=== PATIENT | male | born 1965 | race Caucasian/White ===

== ENCOUNTER 2019-03-29 09:01 | Emergency (ER) | payer OTHER ==
[~2019-03-29] VITALS: Ht 182.9 cm; Wt 93.7 kg
[2019-03-29 11:04] LABS: BASO % 0.4 % (0.0-1.0); EOS # 0.1 10^3/uL (0.0-0.5); EOS % 1.1 % (0.0-3.0); HEMATOCRIT 48.1 % (42.0-52.0); HEMOGLOBIN 16.1 g/dl (13.5-17.5); LYMPH # 3.2 10^3/uL (1.5-5.0); LYMPH % 32.4 % (24.0-44.0); MEAN CORPUSCULAR HEMOGLOBIN 30.1 pg (27.0-33.0); MEAN CORPUSCULAR HGB CONC 33.5 g/dl (32.0-36.5); MEAN CORPUSCULAR VOLUME 90.1 fl (80.0-96.0); MONO # 0.8 10^3/uL (0.0-0.8); MONO % 8.5 % (0.0-5.0); NEUTROPHILS # 5.6 10^3/uL (1.5-8.5); NEUTROPHILS % 57.3 % (36.0-66.0); PLATELET COUNT, AUTOMATED 266 10^3/uL (150-450); RED BLOOD COUNT 5.34 10^6/uL (4.30-6.10); WHITE BLOOD COUNT 9.8 10^3/uL (4.0-10.0)
[2019-03-29 11:24] LABS: ALBUMIN 3.9 GM/DL (3.2-5.2); ALT/SGPT 39 U/L (12-78); BILIRUBIN,TOTAL 0.3 MG/DL (0.2-1.0); BLOOD UREA NITROGEN 13 MG/DL (7-18); CARBON DIOXIDE LEVEL 24 MEQ/L (21-32); CHLORIDE LEVEL 110 MEQ/L (98-107); CREATININE FOR GFR 0.84 MG/DL (0.70-1.30); GLOMERULAR FILTRATION RATE > 60.0 (>56); GLUCOSE, FASTING 110 MG/DL (70-100); POTASSIUM SERUM 4.4 MEQ/L (3.5-5.1); SODIUM LEVEL 139 MEQ/L (136-145); TOTAL PROTEIN 7.4 GM/DL (6.4-8.2)
[2019-03-29 11:35] VITALS: BP 123/79
[2019-03-29] MEDS ORDERED: LIDOCAINE 5% (LIDODERM) PATCH TD ONE (11:45)
[2019-03-29] MEDS ORDERED: IBUPROFEN 800 MG TAB PO ONE (11:45)
[2019-03-29] MEDS ORDERED: **NOTE PATIENT COMMENT** MISC XX SCH (21:00)
== END 2019-03-29 11:55 | disposition home or self-care (01) ==
LOC: M ED 09:01
DX: M54.5 Low back pain (principal); F17.210 Nicotine dependence, cigarettes, uncomplicated; Z83.3 Family history of diabetes mellitus

== ENCOUNTER 2019-07-05 12:38 | Emergency (ER) | payer OTHER ==
[~2019-07-05] VITALS: Ht 182.9 cm; Wt 95.7 kg
[2019-07-05] MEDS ORDERED: ASPIRIN 81 MG CHEW TABLET PO ONE (13:00)
[2019-07-05] MEDS ORDERED: HEPARIN DRIP 25,000 UNITS in IV 1 EA IV SCH (13:17)
[2019-07-05] MEDS ORDERED: CLOPIDOGREL 300 MG TAB (PLAVIX) PO ONE (13:30)
[2019-07-05] MEDS ORDERED: NITROGLYCERIN 2% OINT 1 GM *U/D* PKT TOP ONE (13:30)
[2019-07-05] MEDS ORDERED: HEPARIN SOD (PORCINE) 5000UNITS/ML VIAL (J1644 PER 1000UNITS) IV ONE (13:30)
[2019-07-05 13:34] LABS: BASO % 0.4 % (0.0-1.0); EOS # 0.1 10^3/uL (0.0-0.5); EOS % 1.3 % (0.0-3.0); HEMATOCRIT 43.1 % (42.0-52.0); LYMPH # 2.6 10^3/uL (1.5-5.0); LYMPH % 23.5 % (24.0-44.0); MEAN CORPUSCULAR HEMOGLOBIN 31.1 pg (27.0-33.0); MEAN CORPUSCULAR HGB CONC 34.8 g/dl (32.0-36.5); MEAN CORPUSCULAR VOLUME 89.2 fl (80.0-96.0); MONO # 0.8 10^3/uL (0.0-0.8); NEUTROPHILS # 7.4 10^3/uL (1.5-8.5); NEUTROPHILS % 67.4 % (36.0-66.0); PLATELET COUNT, AUTOMATED 257 10^3/uL (150-450); RED BLOOD COUNT 4.83 10^6/uL (4.30-6.10)
[2019-07-05 13:47] LABS: INR 0.95; PROTHROMBIN TIME 12.4 SECONDS (11.8-14.0)
[2019-07-05 13:48] LABS: PARTIAL THROMBOPLASTIN TIME 34.6 SECONDS (25.0-38.4)
--- NOTE | 2019-07-05 14:09 | REP ---
REASON: Chest pain. FINDINGS: The technique utilized in obtaining the radiograph has magnified the cardiac silhouette and accentuated the interstitial markings. The superior mediastinal structures are midline. The cardiac silhouette is unremarkable in size, shape, and position. The diaphragmatic surfaces of the lungs are regular, and the costophrenic angles are clear. The pulmonary cantrell are clear. The imaged osseous structures are intact. IMPRESSION: There is no acute cardiopulmonary disease. Electronically Signed by Min Tam DO 07/05/2019 05:08 P
[2019-07-05 14:12] VITALS: BP 141/86
[2019-07-05 14:14] VITALS: BP 141/86
--- NOTE | 2019-07-05 21:10 | ECGEPIP ---
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
== END 2019-07-05 14:21 | disposition short-term general hospital (02) ==
LOC: M ED 12:38
DX: I21.4 Non-ST elevation (NSTEMI) myocardial infarction (principal); F17.210 Nicotine dependence, cigarettes, uncomplicated
CPT/HCPCS: 71045; 80047; 83880; 84484; 85025; 85610; 85730; 93005; 93041; 94760; 96365; 99285; J1644

== ENCOUNTER → 2020-06-20 | Outpatient (REF) | payer OTHER | LOC: M SFHCPLAZ 12:18 | PROVIDERS: ATTEND Family Medicine | DX: Z53.20 Procedure and treatment not carried out because of patient's decision for unspecified reasons (principal) ==

== ENCOUNTER → 2020-10-17 | Outpatient (CLI) | payer OTHER ==
[2020-10-17 13:45] LABS: HEMATOCRIT 47.4 % (42.0-52.0); HEMOGLOBIN 16.1 g/dl (13.5-17.5); MEAN CORPUSCULAR HEMOGLOBIN 31.3 pg (27.0-33.0); PLATELET COUNT, AUTOMATED 277 10^3/uL (150-450); RED BLOOD COUNT 5.15 10^6/uL (4.30-6.10); WHITE BLOOD COUNT 13.1 10^3/uL (4.0-10.0)
== END ==
LOC: M PLALAB 10:47
PROVIDERS: ATTEND Physician Assistant Medical
DX: R19.5 Other fecal abnormalities (principal)

== ENCOUNTER → 2020-11-10 | Outpatient (CLI) | payer OTHER ==
[~2020-11-10] MED LIST: ALIR150P; ATOR80TA59; EZET10TA21; LISI-898; METO1TAB87
== END ==
LOC: M LABSMTC 11:20
PROVIDERS: ATTEND Anesthesiology
DX: Z20.822 Contact with and (suspected) exposure to COVID-19 (principal)

== ENCOUNTER 2020-11-14 07:57 | Day surgery (SDC) | payer OTHER ==
[~2020-11-14] VITALS: Ht 182.9 cm; Wt 88.5 kg
[~2020-11-14 07:57] MED LIST changes: +LIDOCAINE 2% 100MG/5ML SDV (FOR ANES.) As Ordered ONE; +NS 1,000 ML IV ONE; +propofoL 200 MG/20 ML VIAL As Ordered ONE
[2020-11-14] MEDS ORDERED: ASPI81CH48 PO (08:20)
[2020-11-14] MEDS ORDERED: BAYE325T12 PO (08:33)
--- NOTE | 2020-11-14 09:30 | ROOR ---
Patient Name: Sigifredo Munoz Procedure Date: 11/14/2020 8:54 AM Date of : 1965 Age: 55 Room: [facility] Gender: Male Note Status: Finalized Procedure: Colonoscopy Indications: Screening for colorectal malignant neoplasm, Incidental - Positive Cologuard test Providers: Andres Del Angel MD Referring MD: Buddy Siegel MD Requesting Provider: Medicines: Monitored Anesthesia Care Complications: No immediate complications. Procedure: Pre-Anesthesia Assessment: - Prior to the procedure, a History and Physical was performed, and patient medications and allergies were reviewed. The patient is competent. The risks and benefits of the procedure and the sedation options and risks were discussed with the patient. All questions were answered and informed consent was obtained. Patient identification and proposed procedure were verified by the physician, the nurse and the anesthesiologist in the procedure room. Mental Status Examination: alert and oriented. Airway Examination: normal oropharyngeal airway and neck mobility. Respiratory Examination: clear to auscultation. CV Examination: normal. Prophylactic Antibiotics: The patient does not require prophylactic antibiotics. Prior Anticoagulants: The patient has taken no previous anticoagulant or antiplatelet agents. ASA Grade Assessment: II - A patient with mild systemic disease. After reviewing the risks and benefits, the patient was deemed in satisfactory condition to undergo the procedure. The anesthesia plan was to use monitored anesthesia care (MAC). Immediately prior to administration of medications, the patient was re-assessed for adequacy to receive sedatives. The heart rate, respiratory rate, oxygen saturations, blood pressure, adequacy of pulmonary ventilation, and response to care were monitored throughout the procedure. The physical status of the patient was re-assessed after the procedure. The Colonoscope was introduced through the anus and advanced to the terminal ileum, with identification of the appendiceal orifice and IC valve. The colonoscopy was performed without difficulty. The patient tolerated the procedure well. The quality of the bowel preparation was good. The terminal ileum, ileocecal valve, appendiceal orifice, and rectum were photographed. Scope insertion time was 2 minutes. Scope withdrawal time was 10 minutes. The total duration of the procedure was 12 minutes. Findings: The perianal and digital rectal examinations were normal. The terminal ileum appeared normal. A 6 mm polyp was found in the sigmoid colon. The polyp was sessile. The polyp was removed with a jumbo cold forceps. Resection and retrieval were complete. Verification of patient identification for the specimen was done by the physician and nurse using the patient's name, date and medical record number. Estimated blood loss was minimal. Many small-mouthed diverticula were found in the sigmoid colon. There was no evidence of diverticular bleeding. Non-bleeding external and internal hemorrhoids were found during retroflexion. The hemorrhoids were medium-sized. Impression: - The examined portion of the ileum was normal. - One 6 mm polyp in the sigmoid colon, removed with a jumbo cold forceps. Resected and retrieved. - Moderate diverticulosis in the sigmoid colon. There was no evidence of diverticular bleeding. - Non-bleeding external and internal hemorrhoids. Recommendation: - Patient has a contact number available for emergencies. The signs and symptoms of potential delayed complications were discussed with the patient. Return to normal activities tomorrow. Written discharge instructions were provided to the patient. - High fiber diet. - Continue present medications. - Use fiber, for example Citrucel, Fibercon, Konsyl or Metamucil. - Await pathology results. - Repeat colonoscopy in 5 years for surveillance based on pathology results. - Return to GI clinic if persistent symptoms or new symptoms. - Return to primary care physician. Procedure Code(s): --- Professional --- 32895, Colonoscopy, flexible; with biopsy, single or multiple Diagnosis Code(s): --- Professional --- Z12.11, Encounter for screening for malignant neoplasm of colon K64.8, Other hemorrhoids K63.5, Polyp of colon K57.30, Diverticulosis of large intestine without perforation or abscess without bleeding CPT copyright 2019 [employer]. All rights reserved. The codes documented in this report are preliminary and upon spanish professor review may be revised to meet current compliance requirements. Andres Del Angel MD Andres Del Angel MD 11/14/2020 9:29:38 AM Electronically signed by Andres Del Angel MD Number of Addenda: 0 Note Initiated On: 11/14/2020 8:54 AM Estimated Blood Loss: Estimated blood loss was minimal.
[2020-11-14 09:44] VITALS: BP 136/85
== END 2020-11-14 09:56 | disposition home or self-care (01) ==
LOC: M OPP 07:57
PROVIDERS: ATTEND Internal Medicine Gastroenterology
DX: K63.5 Polyp of colon (principal); K57.30 Diverticulosis of large intestine without perforation or abscess without bleeding; K64.8 Other hemorrhoids; R19.5 Other fecal abnormalities; Z79.82 Long term (current) use of aspirin; Z79.899 Other long term (current) drug therapy; F17.210 Nicotine dependence, cigarettes, uncomplicated

== ENCOUNTER → 2021-02-23 | Outpatient (CLI) | payer OTHER ==
[~2021-02-23] MED LIST changes: +ASPI81CH48 PO; +BAYE325T12 PO; -LIDOCAINE 2% 100MG/5ML SDV (FOR ANES.) As Ordered ONE; -LISI-898; +LISI5TAB11; -NS 1,000 ML IV ONE; -propofoL 200 MG/20 ML VIAL As Ordered ONE
== END ==
LOC: M PLAIMG 15:06
PROVIDERS: ATTEND Student in an Organized Health Care Education/Training Program
DX: M25.551 Pain in right hip (principal)

== ENCOUNTER → 2021-04-01 | Outpatient (CLI) | payer OTHER ==
[2021-04-01 14:03] LABS: BASO # 0.1 10^3/uL (0.0-0.2); BASO % 0.5 % (0.0-1.0); EOS # 0.3 10^3/uL (0.0-0.5); EOS % 2.7 % (0.0-3.0); HEMATOCRIT 49.7 % (42.0-52.0); HEMOGLOBIN 16.3 g/dl (13.5-17.5); LYMPH % 30.9 % (24.0-44.0); MEAN CORPUSCULAR HEMOGLOBIN 30.2 pg (27.0-33.0); MEAN CORPUSCULAR HGB CONC 32.8 g/dl (32.0-36.5); MEAN CORPUSCULAR VOLUME 92.2 fl (80.0-96.0); MONO # 0.8 10^3/uL (0.0-0.8); MONO % 8.8 % (2.0-8.0); NEUTROPHILS # 5.4 10^3/uL (1.5-8.5); NEUTROPHILS % 56.7 % (36.0-66.0); PLATELET COUNT, AUTOMATED 263 10^3/uL (150-450); RED BLOOD COUNT 5.39 10^6/uL (4.30-6.10); WHITE BLOOD COUNT 9.5 10^3/uL (4.0-10.0)
[2021-04-01 14:15] LABS: BLOOD UREA NITROGEN 18 MG/DL (7-18); CALCIUM LEVEL 9.1 MG/DL (8.5-10.1); CARBON DIOXIDE LEVEL 25 MEQ/L (21-32); CHLORIDE LEVEL 110 MEQ/L (98-107); CHOLESTEROL LEVEL 66 MG/DL (<200); CHOLESTEROL RISK RATIO 1.692 (<5); CREATININE FOR GFR 0.91 MG/DL (0.70-1.30); GLOMERULAR FILTRATION RATE > 60.0 (>56); GLUCOSE, FASTING 129 MG/DL (70-100); HDL CHOLESTEROL 39 MG/DL (>40); LDL CHOLESTEROL 18 MG/DL (<100); NON-HDL-C 27 MG/DL; POTASSIUM SERUM 4.5 MEQ/L (3.5-5.1); SODIUM LEVEL 140 MEQ/L (136-145); TRIGLYCERIDES LEVEL 43 MG/DL (<150)
[2021-04-01 15:15] LABS: HEMOGLOBIN A1c 5.9 %
== END ==
LOC: M PLALAB 08:41
PROVIDERS: ATTEND Student in an Organized Health Care Education/Training Program
DX: E78.00 Pure hypercholesterolemia, unspecified (principal); Z13.1 Encounter for screening for diabetes mellitus; Z12.5 Encounter for screening for malignant neoplasm of prostate

== ENCOUNTER → 2021-04-03 | Outpatient (CLI) | payer OTHER | LOC: M LABSMTC 11:33 | PROVIDERS: ATTEND Surgery Vascular Surgery | DX: Z01.812 Encounter for preprocedural laboratory examination (principal); I65.22 Occlusion and stenosis of left carotid artery ==

== ENCOUNTER → 2021-06-04 | Outpatient (CLI) | payer OTHER ==
[2021-06-04 13:19] LABS: BASO # 0.1 10^3/uL (0.0-0.2); BASO % 0.8 % (0.0-1.0); EOS # 0.1 10^3/uL (0.0-0.5); EOS % 1.5 % (0.0-3.0); HEMATOCRIT 40.9 % (42.0-52.0); HEMOGLOBIN 14.3 g/dl (13.5-17.5); LYMPH # 2.1 10^3/uL (1.5-5.0); LYMPH % 23.9 % (24.0-44.0); MEAN CORPUSCULAR HEMOGLOBIN 31.4 pg (27.0-33.0); MEAN CORPUSCULAR VOLUME 89.9 fl (80.0-96.0); MONO # 0.7 10^3/uL (0.0-0.8); MONO % 8.2 % (2.0-8.0); NEUTROPHILS # 5.7 10^3/uL (1.5-8.5); NEUTROPHILS % 65.4 % (36.0-66.0); PLATELET COUNT, AUTOMATED 244 10^3/uL (150-450); RED BLOOD COUNT 4.55 10^6/uL (4.30-6.10); WHITE BLOOD COUNT 8.8 10^3/uL (4.0-10.0)
[2021-06-04 13:45] LABS: ERYTHROCYTE SEDIMENTATION RATE 4 mm/hr (0-20)
[2021-06-04 13:47] LABS: C REACTIVE PROTEIN QUANTITATIV < 0.30 MG/DL (0.00-0.30); RHEUMATOID FACTOR QUANT < 10.0 IU/ML (<15.0)
[2021-06-05 14:09] LABS: ANTINUCLEAR ANTIBODIES DIRECT Negative (Negative)
== END ==
LOC: M PLALAB 12:02
PROVIDERS: ATTEND Orthopaedic Surgery
DX: M16.12 Unilateral primary osteoarthritis, left hip (principal)

== ENCOUNTER → 2021-06-17 | Outpatient (CLI) | payer OTHER ==
[2021-06-17 15:32] LABS: INR 0.9; PROTHROMBIN TIME 12.6 SECONDS (12.7-14.5)
[2021-06-17 15:33] LABS: PARTIAL THROMBOPLASTIN TIME 35.3 SECONDS (25.9-37.0)
== END ==
LOC: M PLALAB 13:44
PROVIDERS: ATTEND Student in an Organized Health Care Education/Training Program
DX: R19.7 Diarrhea, unspecified (principal)

== ENCOUNTER → 2021-06-17 | Outpatient (CLI) | payer OTHER ==
[2021-06-19 23:07] LABS: IgG P18 AB Absent (.); IgG P23 AB Absent (.); IgG P28 AB Absent (.); IgG P30 AB Absent (.); IgG P39 AB Absent (.); IgG P41 AB Absent (.); IgG P45 AB Absent (.); IgG P66 AB Absent (.); IgG P93 AB Absent (.); IgM P23 AB Present (.); IgM P39 AB Absent (.); IgM P41 AB Absent (.); LYME IgG WB INTERPRETATION Negative (.); LYME IgM WB INTERPRETATION Negative (.)
== END ==
LOC: M PLALAB 13:46
PROVIDERS: ATTEND Orthopaedic Surgery
DX: M70.62 Trochanteric bursitis, left hip (principal); M54.50 Low back pain, unspecified

== ENCOUNTER → 2021-10-01 | Outpatient (CLI) | payer OTHER | LOC: M RAD 15:17 | PROVIDERS: ATTEND Student in an Organized Health Care Education/Training Program | DX: R22.0 Localized swelling, mass and lump, head (principal); R20.0 Anesthesia of skin ==

== ENCOUNTER → 2021-10-15 | Outpatient (CLI) | payer OTHER ==
[~2021-10-15] MED LIST changes: -ALIR150P; +ALIR150P4
== END ==
LOC: M RAD 07:08
PROVIDERS: ATTEND Student in an Organized Health Care Education/Training Program
DX: R22.0 Localized swelling, mass and lump, head (principal)

== ENCOUNTER → 2022-01-06 | Outpatient (CLI) | payer OTHER ==
[2022-01-06 16:22] LABS: CHOLESTEROL RISK RATIO 1.73 (<5); HDL CHOLESTEROL 43.8 MG/DL (>40)
== END ==
LOC: M PLALAB 09:19
PROVIDERS: ATTEND Physician Assistant
DX: E78.2 Mixed hyperlipidemia (principal)

== ENCOUNTER → 2022-01-06 | Outpatient (CLI) | payer OTHER ==
[2022-01-06 14:52] LABS: HEMATOCRIT 45.2 % (42.0-52.0)
[2022-01-06 14:55] LABS: BASO % 0.4 % (0.0-1.0); EOS # 0.1 10^3/uL (0.0-0.5); EOS % 0.7 % (0.0-3.0); HEMATOCRIT 44.9 % (42.0-52.0); LYMPH # 2.2 10^3/uL (1.5-5.0); LYMPH % 22.9 % (24.0-44.0); MEAN CORPUSCULAR HEMOGLOBIN 31.6 pg (27.0-33.0); MEAN CORPUSCULAR HGB CONC 33.4 g/dl (32.0-36.5); MEAN CORPUSCULAR VOLUME 94.7 fl (80.0-96.0); MONO # 0.7 10^3/uL (0.0-0.8); MONO % 7.1 % (2.0-8.0); NEUTROPHILS # 6.6 10^3/uL (1.5-8.5); NEUTROPHILS % 68.5 % (36.0-66.0); PLATELET COUNT, AUTOMATED 256 10^3/uL (150-450); RED BLOOD COUNT 4.74 10^6/uL (4.30-6.10); WHITE BLOOD COUNT 9.6 10^3/uL (4.0-10.0)
[2022-01-06 16:28] LABS: ALKALINE PHOSPHATASE 96 U/L (46-116); ALT/SGPT 50 U/L (7.0-40); AST/SGOT 26 U/L (<34); BILIRUBIN,TOTAL 0.4 MG/DL (0.3-1.2); BLOOD UREA NITROGEN 18 MG/DL (9-23); CALCIUM LEVEL 9.5 MG/DL (8.5-10.1); CARBON DIOXIDE LEVEL 25 MMOL/L (20-31); CHLORIDE LEVEL 107 MMOL/L (98-107); CHOLESTEROL LEVEL 74 MG/DL (<200); CHOLESTEROL RISK RATIO 1.72 (<5); CREATININE FOR GFR 0.83 MG/DL (0.70-1.30); GLOMERULAR FILTRATION RATE > 60.0 (>56); GLUCOSE, FASTING 136 MG/DL (60-100); HDL CHOLESTEROL 42.9 MG/DL (>40); LDL CHOLESTEROL 22.9 MG/DL (<100); NON-HDL-C 31 MG/DL; POTASSIUM SERUM 4.4 MMOL/L (3.5-5.1); SODIUM LEVEL 140 MMOL/L (136-145); THYROID STIMULATING HORMONE 2.363 uIU/ML (0.55-4.78); TOTAL PROTEIN 6.8 G/DL (5.7-8.2); TRIGLYCERIDES LEVEL 41 MG/DL (<150); VITAMIN B12 LEVEL 557 PG/ML (211-911)
[2022-01-06 23:07] LABS: HEMOGLOBIN A1c 5.3 % (4.0-6.0)
[2022-01-08 23:07] LABS: IgG P18 AB Absent (.); IgG P23 AB Absent (.); IgG P28 AB Absent (.); IgG P30 AB Absent (.); IgG P39 AB Absent (.); IgG P41 AB Absent (.); IgG P45 AB Absent (.); IgG P66 AB Absent (.); IgG P93 AB Absent (.); IgM P23 AB Absent (.); IgM P39 AB Absent (.); IgM P41 AB Absent (.); LYME IgG WB INTERPRETATION Negative (.); LYME IgM WB INTERPRETATION Negative (.)
== END ==
LOC: M PLALAB 09:21
PROVIDERS: ATTEND Student in an Organized Health Care Education/Training Program
DX: R20.2 Paresthesia of skin (principal); S60.569A Insect bite (nonvenomous) of unspecified hand, initial encounter; Z72.0 Tobacco use

== ENCOUNTER → 2022-02-11 | Outpatient (CLI) | payer OTHER | LOC: M RAD 10:12 | PROVIDERS: ATTEND Student in an Organized Health Care Education/Training Program | DX: F17.200 Nicotine dependence, unspecified, uncomplicated (principal) ==

== ENCOUNTER → 2022-08-12 | Outpatient (CLI) | payer OTHER | LOC: M RAD 13:30 | PROVIDERS: ATTEND Surgery Vascular Surgery | DX: I65.23 Occlusion and stenosis of bilateral carotid arteries (principal) ==

== ENCOUNTER → 2022-09-14 | Outpatient (CLI) | payer OTHER ==
[2022-09-14 11:47] LABS: BLOOD UREA NITROGEN 17 MG/DL (9-23); CALCIUM LEVEL 8.8 MG/DL (8.5-10.1); CARBON DIOXIDE LEVEL 25 MMOL/L (20-31); CHLORIDE LEVEL 108 MMOL/L (98-107); CPK CREATINE PHOSPHOKINASE 417 U/L (46-171); CREATININE FOR GFR 0.77 MG/DL (0.70-1.30); GLOMERULAR FILTRATION RATE > 60.0 (>56); GLUCOSE, FASTING 128 MG/DL (60-100); POTASSIUM SERUM 4.7 MMOL/L (3.5-5.1); SODIUM LEVEL 139 MMOL/L (136-145)
== END ==
LOC: M PLALAB 09:00
PROVIDERS: ATTEND Student in an Organized Health Care Education/Training Program
DX: M79.10 Myalgia, unspecified site (principal)

== ENCOUNTER → 2022-11-10 | Outpatient (CLI) | payer OTHER | LOC: M RAD 06:52 | PROVIDERS: ATTEND Student in an Organized Health Care Education/Training Program | DX: Z84.1 Family history of disorders of kidney and ureter (principal) ==

== ENCOUNTER → 2022-12-23 | Outpatient (CLI) | payer OTHER ==
[2022-12-23 12:02] LABS: CHOLESTEROL RISK RATIO 7.73 (<5); HDL CHOLESTEROL 40.7 MG/DL (>40); LDL CHOLESTEROL 243.3 MG/DL (<100); NON-HDL-C 274.3 MG/DL
== END ==
LOC: M PLALAB 08:40
PROVIDERS: ATTEND Physician Assistant
DX: E78.2 Mixed hyperlipidemia (principal)

== ENCOUNTER → 2023-02-11 | Outpatient (CLI) | payer OTHER | LOC: M RAD 11:13 | PROVIDERS: ATTEND Physician Assistant | DX: I65.23 Occlusion and stenosis of bilateral carotid arteries (principal) ==

== ENCOUNTER → 2023-03-07 | Outpatient (CLI) | payer OTHER | LOC: M RAD 06:59 | PROVIDERS: ATTEND Student in an Organized Health Care Education/Training Program | DX: Z12.2 Encounter for screening for malignant neoplasm of respiratory organs (principal); Z72.0 Tobacco use ==

== ENCOUNTER → 2023-05-26 | Outpatient (CLI) | payer OTHER ==
[2023-05-26 12:12] LABS: BASO % 0.3 % (0.0-1.0); EOS # 0.2 10^3/uL (0.0-0.5); EOS % 1.7 % (0.0-3.0); HEMATOCRIT 45.3 % (42.0-52.0); HEMOGLOBIN 15.2 g/dl (13.5-17.5); LYMPH # 2.3 10^3/uL (1.5-5.0); LYMPH % 18.6 % (24.0-44.0); MEAN CORPUSCULAR HEMOGLOBIN 30.5 pg (27.0-33.0); MEAN CORPUSCULAR HGB CONC 33.6 g/dl (32.0-36.5); MEAN CORPUSCULAR VOLUME 90.8 fl (80.0-96.0); MONO # 1.2 10^3/uL (0.0-0.8); MONO % 9.3 % (2.0-8.0); NEUTROPHILS # 8.7 10^3/uL (1.5-8.5); NEUTROPHILS % 69.7 % (36.0-66.0); PLATELET COUNT, AUTOMATED 268 10^3/uL (150-450); RED BLOOD COUNT 4.99 10^6/uL (4.30-6.10); WHITE BLOOD COUNT 12.4 10^3/uL (4.0-10.0)
[2023-05-26 12:39] LABS: CREATININE, URINE 98.6 MG/DL
[2023-05-26 12:40] LABS: ALBUMIN 3.7 G/DL (3.2-5.2); ALKALINE PHOSPHATASE 99 U/L (46-116); ALT/SGPT 36 U/L (7.0-40); AST/SGOT 19 U/L (<34); BILIRUBIN,TOTAL 0.3 MG/DL (0.3-1.2); BLOOD UREA NITROGEN 17 MG/DL (9-23); CALCIUM LEVEL 8.8 MG/DL (8.5-10.1); CARBON DIOXIDE LEVEL 26 MMOL/L (20-31); CHLORIDE LEVEL 109 MMOL/L (98-107); CHOLESTEROL LEVEL 158 MG/DL (<200); CHOLESTEROL RISK RATIO 4.05 (<5); CREATININE FOR GFR 0.86 MG/DL (0.70-1.30); GLOMERULAR FILTRATION RATE > 60.0 (>56); GLUCOSE, FASTING 131 MG/DL (60-100); POTASSIUM SERUM 4.8 MMOL/L (3.5-5.1); SODIUM LEVEL 140 MMOL/L (136-145); TRIGLYCERIDES LEVEL 85 MG/DL (<150)
[2023-05-27 17:07] LABS: IgG P18 AB Absent (.); IgG P23 AB Absent (.); IgG P28 AB Absent (.); IgG P30 AB Absent (.); IgG P39 AB Absent (.); IgG P41 AB Absent (.); IgG P45 AB Absent (.); IgG P66 AB Absent (.); IgG P93 AB Absent (.); IgM P23 AB Absent (.); IgM P39 AB Absent (.); IgM P41 AB Absent (.); LYME IgG WB INTERPRETATION Negative (.); LYME IgM WB INTERPRETATION Negative (.)
== END ==
LOC: M PLALAB 08:22
PROVIDERS: ATTEND Student in an Organized Health Care Education/Training Program
DX: Z00.00 Encounter for general adult medical examination without abnormal findings (principal); I10 Essential (primary) hypertension; S40.862A Insect bite (nonvenomous) of left upper arm, initial encounter

== ENCOUNTER → 2023-05-26 | Outpatient (REF) | payer OTHER | LOC: M SFHCPLAZ 09:10 | PROVIDERS: ATTEND Student in an Organized Health Care Education/Training Program | DX: Z00.00 Encounter for general adult medical examination without abnormal findings (principal); I10 Essential (primary) hypertension; S40.862A Insect bite (nonvenomous) of left upper arm, initial encounter; Z53.9 Procedure and treatment not carried out, unspecified reason ==

== ENCOUNTER → 2023-06-24 | Outpatient (CLI) | payer OTHER | LOC: M OUTALCOH 11:13 | PROVIDERS: ATTEND Psychiatry & Neurology Psychiatry | DX: Z03.89 Encounter for observation for other suspected diseases and conditions ruled out (principal) ==

== ENCOUNTER 2023-07-01 11:00 | Outpatient (RCR) | payer OTHER | END 2023-07-08 | LOC: M OUTALCOH 11:00 | PROVIDERS: ATTEND Psychiatry & Neurology Psychiatry | DX: Z03.89 Encounter for observation for other suspected diseases and conditions ruled out (principal) ==

== ENCOUNTER → 2023-11-04 | Outpatient (CLI) | payer OTHER | LOC: M SLEEP HO 11:15 | PROVIDERS: ATTEND Student in an Organized Health Care Education/Training Program | DX: G47.33 Obstructive sleep apnea (adult) (pediatric) (principal) ==

== ENCOUNTER → 2023-11-09 | Outpatient (CLI) | payer OTHER | LOC: M RAD 13:12 | PROVIDERS: ATTEND Student in an Organized Health Care Education/Training Program | DX: I65.1 Occlusion and stenosis of basilar artery (principal) ==

== ENCOUNTER → 2023-11-24 | Outpatient (CLI) | payer OTHER | LOC: M OUTALCOH 13:57 | PROVIDERS: ATTEND Psychiatry & Neurology Psychiatry | DX: Z03.89 Encounter for observation for other suspected diseases and conditions ruled out (principal) ==

== ENCOUNTER 2023-12-07 13:03 | Outpatient (RCR) | payer OTHER | END 2023-12-08 | LOC: M OUTALCOH 13:03 | PROVIDERS: ATTEND Psychiatry & Neurology Psychiatry | DX: F10.10 Alcohol abuse, uncomplicated (principal); F17.200 Nicotine dependence, unspecified, uncomplicated ==

== ENCOUNTER 2024-01-04 10:00 | Outpatient (RCR) | payer OTHER | END 2024-01-07 | LOC: M OUTALCOH 10:00 | PROVIDERS: ATTEND Psychiatry & Neurology Psychiatry | DX: F10.10 Alcohol abuse, uncomplicated (principal); F17.200 Nicotine dependence, unspecified, uncomplicated ==

== ENCOUNTER → 2024-02-15 | Outpatient (CLI) | payer OTHER ==
[~2024-02-15] MED LIST changes: -BAYE325T12 PO; +BAYE325T2 PO
== END ==
LOC: M RAD 13:49
PROVIDERS: ATTEND Physician Assistant
DX: I65.23 Occlusion and stenosis of bilateral carotid arteries (principal)

== ENCOUNTER → 2024-04-03 | Outpatient (CLI) | payer OTHER ==
[2024-04-03 14:08] LABS: BASO # 0.1 10^3/uL (0.0-0.2); BASO % 0.6 % (0.0-1.0); EOS # 0.1 10^3/uL (0.0-0.5); EOS % 1.1 % (0.0-3.0); HEMATOCRIT 45.7 % (42.0-52.0); HEMOGLOBIN 15.6 g/dl (13.5-17.5); LYMPH # 2.9 10^3/uL (1.5-5.0); LYMPH % 32.2 % (24.0-44.0); MEAN CORPUSCULAR HEMOGLOBIN 30.9 pg (27.0-33.0); MEAN CORPUSCULAR HGB CONC 34.1 g/dl (32.0-36.5); MEAN CORPUSCULAR VOLUME 90.5 fl (80.0-96.0); MONO # 0.8 10^3/uL (0.0-0.8); MONO % 8.4 % (2.0-8.0); NEUTROPHILS # 5.1 10^3/uL (1.5-8.5); NEUTROPHILS % 57.4 % (36.0-66.0); PLATELET COUNT, AUTOMATED 248 10^3/uL (150-450); RED BLOOD COUNT 5.05 10^6/uL (4.30-6.10); WHITE BLOOD COUNT 8.9 10^3/uL (4.0-10.0)
[2024-04-03 14:14] LABS: ALKALINE PHOSPHATASE 95 U/L (40-129); ALT/SGPT 59 U/L (7.0-40); AST/SGOT 26 U/L (<34); BILIRUBIN,TOTAL 0.4 MG/DL (0.3-1.2); BLOOD UREA NITROGEN 18 MG/DL (9-23); CALCIUM LEVEL 9.1 MG/DL (8.5-10.1); CARBON DIOXIDE LEVEL 26 MMOL/L (20-31); CHLORIDE LEVEL 108 MMOL/L (98-107); CHOLESTEROL LEVEL 166 MG/DL (<200); CHOLESTEROL RISK RATIO 4.31 (<5); CREATININE FOR GFR 0.77 MG/DL (0.70-1.30); GLOMERULAR FILTRATION RATE > 60.0 (>56); GLUCOSE, FASTING 114 MG/DL (60-100); HDL CHOLESTEROL 38.5 MG/DL (>40); LDL CHOLESTEROL 101.3 MG/DL (<100); NON-HDL-C 127.5 MG/DL; POTASSIUM SERUM 4.8 MMOL/L (3.5-5.1); PSA SCREENING 0.41 NG/ML (< 4.00); SODIUM LEVEL 138 MMOL/L (136-145); TOTAL PROTEIN 7.3 G/DL (5.7-8.2); TRIGLYCERIDES LEVEL 131 MG/DL (<150)
[2024-04-03 14:34] LABS: CREATININE, URINE 193.7 MG/DL; MAU/CREAT RATIO 6.1 MCG/MG (0.0-30.0)
[2024-04-05 14:07] LABS: IgG P18 AB REACTIVE; IgG P23 AB NON-REACTIVE; IgG P28 AB NON-REACTIVE; IgG P30 AB NON-REACTIVE; IgG P39 AB NON-REACTIVE; IgG P41 AB NON-REACTIVE; IgG P45 AB REACTIVE; IgG P58 AB NON-REACTIVE; IgG P66 AB NON-REACTIVE; IgG P93 AB NON-REACTIVE; IgM P23 AB NON-REACTIVE; IgM P39 AB NON-REACTIVE; IgM P41 AB NON-REACTIVE; LYME IgG WB INTERPRETATION NEGATIVE (NEGATIVE); LYME IgM WB INTERPRETATION NEGATIVE (NEGATIVE)
== END ==
LOC: M PLALAB 11:19
PROVIDERS: ATTEND Student in an Organized Health Care Education/Training Program
DX: I65.21 Occlusion and stenosis of right carotid artery (principal); S50.8 Other superficial injuries of forearm

== ENCOUNTER → 2024-04-09 | Outpatient (CLI) | payer OTHER | LOC: M RAD 16:54 | PROVIDERS: ATTEND Student in an Organized Health Care Education/Training Program | DX: Z12.2 Encounter for screening for malignant neoplasm of respiratory organs (principal); F17.210 Nicotine dependence, cigarettes, uncomplicated ==

== ENCOUNTER → 2024-09-04 | Outpatient (CLI) | payer OTHER | LOC: M RAD 08:37 | PROVIDERS: ATTEND Student in an Organized Health Care Education/Training Program | DX: R74.01 Elevation of levels of liver transaminase levels (principal) ==

== ENCOUNTER → 2024-11-27 | Outpatient (CLI) | payer MEDICARE, MEDICAID ==
[~2024-11-27] MED LIST changes: -EZET10TA21; +EZET10TA57
[2024-11-27 11:51] LABS: CHOLESTEROL LEVEL 118.0 MG/DL (<200); CHOLESTEROL RISK RATIO 3.12 (<5); LDL CHOLESTEROL 60.5 MG/DL (<100); NON-HDL-C 80.3 MG/DL; TRIGLYCERIDES LEVEL 99.0 MG/DL (<150)
== END ==
LOC: M PLALAB 07:19
PROVIDERS: ATTEND Nurse Practitioner Acute Care
DX: E78.2 Mixed hyperlipidemia (principal)

== ENCOUNTER → 2025-01-16 | Outpatient (CLI) | payer MEDICARE, MEDICAID | LOC: M PLAIMG 11:23 | PROVIDERS: ATTEND Family Medicine | DX: M25.512 Pain in left shoulder (principal) ==

== ENCOUNTER → 2025-02-05 | Outpatient (CLI) | payer MEDICARE, MEDICAID | LOC: M PLAIMG 09:10 | PROVIDERS: ATTEND Family Medicine | DX: S05.90XS Unspecified injury of unspecified eye and orbit, sequela (principal); W18.30XS Fall on same level, unspecified, sequela ==

== ENCOUNTER → 2025-02-06 | Outpatient (CLI) | payer MEDICARE, MEDICAID | LOC: M PLAIMG 07:41 | PROVIDERS: ATTEND Family Medicine | DX: M19.012 Primary osteoarthritis, left shoulder (principal); M67.814 Other specified disorders of tendon, left shoulder; M75.102 Unspecified rotator cuff tear or rupture of left shoulder, not specified as traumatic ==